=== PATIENT | male | born 1935 | race Caucasian/White ===

== ENCOUNTER 2023-03-24 10:36 | Inpatient (IN) | payer MEDICARE, BC ==
[2023-03-24] MEDS ORDERED: Furosemide 40 MG/4 ML VIAL IVPUSH ONE ×2 (11:26→14:19)
[2023-03-24 11:32] LABS: BASOPHILS ABSOLUTE AUTO 0.02 K/mm3 (0.01-0.08); BASOPHILS PERCENT AUTO 0.3 % (0.1-1.2); EOSINOPHILS ABSOLUTE AUTO 0.18 K/mm3 (0.04-0.54); EOSINOPHILS PERCENT AUTO 2.5 (0.8-7.0); HEMATOCRIT 42.6 % (40.1-51.0); HEMOGLOBIN 13.7 gm/dl (13.7-17.5); IMMATURE GRAN ABSOLUTE AUTO 0.02 K/mm3 (0.00-0.10); IMMATURE GRAN PERCENT AUTO 0.3 % (<=1.0); LYMPHOCYTES ABSOLUTE AUTO 1.59 K/mm3 (1.32-3.57); LYMPHOCYTES PERCENT AUTO 21.8 % (21.8-53.1); MEAN CORPUSCULAR HEMOGLOBIN 29.8 pg (25.7-32.2); MEAN CORPUSCULAR HGB CONC 32.2 g/dl (32.2-35.5); MEAN CORPUSCULAR VOLUME 92.6 fl (79.0-92.2); MEAN PLATELET VOLUME 10.2 fl (9.4-12.3); MONOCYTES ABSOLUTE AUTO 0.94 K/mm3 (0.30-0.82); MONOCYTES PERCENT AUTO 12.9 % (5.3-12.2); NEUTROPHILS ABSOLUTE AUTO 4.56 K/mm3 (1.78-5.38); NEUTROPHILS PERCENT AUTO 62.2 % (34.0-67.9); PLATELET COUNT,PLT 144 K/mm3 (163-337); WHITE BLOOD CELL COUNT,WBC 7.31 K/mm3 (4.23-9.07)
[2023-03-24 11:41] LABS: INR 1.12; PROTHROMBIN TIME 11.9 SECONDS (9.7-12.0)
[2023-03-24 11:42] LABS: PTT,PARTIAL THROMBOPLSTIN TIME 30.5 SECONDS (21.7-31.4)
[2023-03-24 11:48] LABS: A/G RATIO 0.9 (1-2); ALBUMIN 3.5 g/dl (3.4-5.0); ANION GAP 13.6 (5-15); BILIRUBIN TOTAL 1.1 mg/dL (0.2-1.0); BUN/CREATININE RATIO 15.8 (14-18); CALCIUM 9.7 mg/dL (8.5-10.1); CREATININE 1.9 mg/dL (0.7-1.3); EST CRCL DRUG DOSING (CG) 28.82 mL/min; POTASSIUM,K 4.6 mEq/L (3.5-5.1); PROTEIN TOTAL,TP 7.5 g/dl (6.4-8.2)
[2023-03-24] MEDS ORDERED: Nitroglycerin 0.1 MG/HR Transdermal Patch TRDERM ONE (14:30)
[2023-03-24] MEDS ORDERED: Docusate Sodium 100 MG Cap PO PRN (15:03)
[2023-03-24] MEDS ORDERED: Ondansetron 4 MG/2 ML SDV IV PRN (15:03)
[2023-03-24] MEDS ORDERED: Ondansetron 4 MG Tab.DIS PO PRN (15:03)
[2023-03-24] MEDS ORDERED: Acetaminophen 325 MG Tab PO PRN (15:03)
[2023-03-24] MEDS: Insulin Lispro 100 Unit/ML 3 ML KwikPen SUBCUT SCH ×2 (17:44→22:14)
[2023-03-24] MEDS: Furosemide 40 MG/4 ML VIAL IVPUSH SCH ×2 (22:15→22:19)
[2023-03-25 05:33] LABS: BASOPHILS ABSOLUTE AUTO 0.03 K/mm3 (0.01-0.08); BASOPHILS PERCENT AUTO 0.5 % (0.1-1.2); EOSINOPHILS PERCENT AUTO 4.6 (0.8-7.0); HEMATOCRIT 38.2 % (40.1-51.0); IMMATURE GRAN ABSOLUTE AUTO 0.01 K/mm3 (0.00-0.10); IMMATURE GRAN PERCENT AUTO 0.2 % (<=1.0); LYMPHOCYTES ABSOLUTE AUTO 1.63 K/mm3 (1.32-3.57); LYMPHOCYTES PERCENT AUTO 24.9 % (21.8-53.1); MEAN CORPUSCULAR HEMOGLOBIN 29.2 pg (25.7-32.2); MEAN CORPUSCULAR HGB CONC 31.7 g/dl (32.2-35.5); MEAN CORPUSCULAR VOLUME 92.3 fl (79.0-92.2); MONOCYTES ABSOLUTE AUTO 1.03 K/mm3 (0.30-0.82); MONOCYTES PERCENT AUTO 15.7 % (5.3-12.2); NEUTROPHILS ABSOLUTE AUTO 3.54 K/mm3 (1.78-5.38); NEUTROPHILS PERCENT AUTO 54.1 % (34.0-67.9); PLATELET COUNT,PLT 146 K/mm3 (163-337); RED BLOOD CELL COUNT 4.14 M/mm3 (4.63-6.08); WHITE BLOOD CELL COUNT,WBC 6.54 K/mm3 (4.23-9.07)
[2023-03-25 05:48] LABS: HEMOGLOBIN 12.1 gm/dl (13.7-17.5)
[2023-03-25 05:57] LABS: ANION GAP 13.8 (5-15); BUN/CREATININE RATIO 17.2 (14-18); CALCIUM 9.6 mg/dL (8.5-10.1); CREATININE 1.8 mg/dL (0.7-1.3); POTASSIUM,K 3.8 mEq/L (3.5-5.1)
[2023-03-25] MEDS: Furosemide 40 MG/4 ML VIAL IVPUSH SCH ×4 (06:37→22:34)
[2023-03-25 06:38] LABS: EST CRCL DRUG DOSING (CG) 29.45 mL/min
[2023-03-25] MEDS: Insulin Lispro 100 Unit/ML 3 ML KwikPen SUBCUT SCH ×4 (07:27→20:56)
[2023-03-25] MEDS: Insulin Glargine,Human Rec. Analog 100 Units/ML 3 ML Pen SUBCUT SCH (20:58)
[2023-03-25] MEDS: Apixaban 2.5 MG Tab PO SCH (20:58)
[2023-03-25] MEDS ORDERED: traZODone 50 MG Tab PO PRN (22:13)
[2023-03-26 05:50] LABS: ANION GAP 13.5 (5-15); BUN/CREATININE RATIO 20.5 (14-18); CALCIUM 9.3 mg/dL (8.5-10.1); CREATININE 2.1 mg/dL (0.7-1.3); EST CRCL DRUG DOSING (CG) 25.24 mL/min; POTASSIUM,K 3.5 mEq/L (3.5-5.1)
[2023-03-26] MEDS: Furosemide 40 MG/4 ML VIAL IVPUSH SCH ×2 (06:46→15:25)
[2023-03-26] MEDS: Insulin Lispro 100 Unit/ML 3 ML KwikPen SUBCUT SCH ×4 (07:37→21:09)
[2023-03-26] MEDS: Metoprolol Succinate 50 MG Tab.ER PO SCH (09:49)
[2023-03-26] MEDS: Potassium Chloride 20 MEQ Tab.ER PO SCH (09:50)
[2023-03-26] MEDS: Colchicine 0.6 MG Tab PO SCH (09:50)
[2023-03-26] MEDS: Isosorbide Mononitrate 30 MG Tab.ER PO SCH (09:50)
[2023-03-26] MEDS: Allopurinol 100 MG Tab PO SCH (09:50)
[2023-03-26] MEDS: Insulin Glargine,Human Rec. Analog 100 Units/ML 3 ML Pen SUBCUT SCH ×2 (09:51→21:10)
[2023-03-26] MEDS: Rosuvastatin 10 MG Tab PO SCH (09:51)
[2023-03-26] MEDS: Pantoprazole 40 MG Tab.CR PO SCH (09:51)
[2023-03-26] MEDS: Apixaban 2.5 MG Tab PO SCH ×2 (09:51→21:10)
[2023-03-26] MEDS: amLODIPine 10 MG Tab PO SCH (09:51)
[2023-03-26] MEDS: Clopidogrel 75 MG Tab PO SCH (09:51)
[2023-03-26] MEDS: Tamsulosin 0.4 MG Cap.ER PO SCH (09:52)
[2023-03-27 05:09] VITALS: PULSE 61
[2023-03-27] MEDS: Furosemide 40 MG/4 ML VIAL IVPUSH SCH (05:29)
[2023-03-27 05:53] LABS: ANION GAP 11.8 (5-15); BUN/CREATININE RATIO 23.3 (14-18); CALCIUM 9.5 mg/dL (8.5-10.1); CREATININE 2.1 mg/dL (0.7-1.3); EST CRCL DRUG DOSING (CG) 24.72 mL/min; POTASSIUM,K 3.8 mEq/L (3.5-5.1)
[2023-03-27] MEDS: Insulin Lispro 100 Unit/ML 3 ML KwikPen SUBCUT SCH ×2 (07:50→11:52)
[2023-03-27 08:31] VITALS: BP 125/62
[2023-03-27] MEDS: Rosuvastatin 10 MG Tab PO SCH (09:09)
[2023-03-27] MEDS: amLODIPine 10 MG Tab PO SCH (09:09)
[2023-03-27] MEDS: Potassium Chloride 20 MEQ Tab.ER PO SCH (09:10)
[2023-03-27] MEDS: Apixaban 2.5 MG Tab PO SCH (09:10)
[2023-03-27] MEDS: Tamsulosin 0.4 MG Cap.ER PO SCH (09:10)
[2023-03-27] MEDS: Metoprolol Succinate 50 MG Tab.ER PO SCH (09:10)
[2023-03-27] MEDS: Pantoprazole 40 MG Tab.CR PO SCH (09:10)
[2023-03-27] MEDS: Clopidogrel 75 MG Tab PO SCH (09:10)
[2023-03-27] MEDS: Colchicine 0.6 MG Tab PO SCH (09:11)
[2023-03-27] MEDS: Allopurinol 100 MG Tab PO SCH (09:11)
[2023-03-27] MEDS: Isosorbide Mononitrate 30 MG Tab.ER PO SCH (09:11)
[2023-03-27] MEDS: Insulin Glargine,Human Rec. Analog 100 Units/ML 3 ML Pen SUBCUT SCH (09:26)
== END 2023-03-27 13:35 | disposition home or self-care (01) | DRG 291 ==
LOC: JD.ED 10:36 → JD.MS 15:03
PROVIDERS: ADMIT Hospitalist; ATTEND Hospitalist
PROC: 5A09357 Assistance with Respiratory Ventilation, Less than 24 Consecutive Hours, Continuous Positive Airway Pressure (ICD-10-PCS; principal; 2023-03-24)
DX: I50.9 Heart failure, unspecified (principal); I50.43 Acute on chronic combined systolic (congestive) and diastolic (congestive) heart failure; J96.01 Acute respiratory failure with hypoxia; N18.4 Chronic kidney disease, stage 4 (severe); I48.92 Unspecified atrial flutter; I38 Endocarditis, valve unspecified; I13.0 Hypertensive heart and chronic kidney disease with heart failure and stage 1 through stage 4 chronic kidney disease, or unspecified chronic kidney disease; Z66 Do not resuscitate; R09.02 Hypoxemia; I25.2 Old myocardial infarction; M10.9 Gout, unspecified; I48.91 Unspecified atrial fibrillation; E11.22 Type 2 diabetes mellitus with diabetic chronic kidney disease; N18.9 Chronic kidney disease, unspecified; E78.00 Pure hypercholesterolemia, unspecified; Z87.442 Personal history of urinary calculi; I25.10 Atherosclerotic heart disease of native coronary artery without angina pectoris; Z79.4 Long term (current) use of insulin; Z86.73 Personal history of transient ischemic attack (TIA), and cerebral infarction without residual deficits; Z99.81 Dependence on supplemental oxygen; Z79.02 Long term (current) use of antithrombotics/antiplatelets; Z79.01 Long term (current) use of anticoagulants; Z79.899 Other long term (current) drug therapy; Z95.0 Presence of cardiac pacemaker; Z95.1 Presence of aortocoronary bypass graft
CPT/HCPCS: 36415; 71045; 71250; 80053; 84484; 85025; 85379; 85610; 85730; 94660; 96374; 99285; J1940; 80048; 82947; 93005; 93010; 94760; 94761; 97110-GP; 97161-GP; 97165-GO; A9270-GY; J1815; J1815-GY